=== PATIENT | female | born 1975 | race American Indian/Alaskan Native ===

== ENCOUNTER 2020-01-22 05:28 | Observation (INO) | payer OTHER ==
[2020-01-22] MEDS ORDERED: ASPIRIN 325 MG TAB PO ONE (06:02)
[2020-01-22] MEDS ORDERED: MORPHINE 4 MG/1 ML INJ IV ONE ×2 (06:14→07:25)
[2020-01-22] MEDS ORDERED: ONDANSETRON 4 MG/2 ML INJ IV ONE (06:14)
--- NOTE | 2020-01-22 06:16 | Emergency Department Report ---
ED Chest Pain HPI - General Chief Complaint: Chest Pain Stated Complaint: CHEST PAIN Time Seen by Provider: 01/22/20 06:05 Source: EMS Mode of arrival: Stretcher Limitations: No Limitations - History of Present Illness Initial Comments: 44-year-old -Indian female presents to the emergency department via EMS from home with a complaint of some midsternal chest pain with radiation to the back that started about 20 minutes prior to presentation. She received a full dose aspirin and 3 sublingual nitro in route with EMS without any relief. She h as a past medical history of hypertension, CVA. She is a tobacco smoker but denies any illicit drug use. No primary care physician. No recent travel or sick contacts at home. She has some mild associated shortness of breath, but denies any fever, vomiting, diaphoresis, headache. - Related Data Allergies Allergy/AdvReac Type Severity Reaction Status Date / Time tramadol AdvReac Nausea Verified 01/22/20 05:50 Heart Score - HEART Score History: Slightly suspicious EKG: Normal Age: 45-65 Risk factors: > 3 risk factors or hx of atherosclerotic disease Troponin: < normal limit HEART Score: 3 - Critical Actions Critical Actions: 0-3 pts:0.9-1.7%risk of adverse cardiac event.Candidate for discharge ED Review of Systems ROS: Stated complaint: CHEST PAIN Other details as noted in HPI Comment: All other systems reviewed and negative Constitutional: denies: chills, fever Eyes: denies: eye pain, vision change ENT: denies: ear pain, throat pain Respiratory: shortness of breath. denies: cough Cardiovascular: chest pain. denies: palpitations Gastrointestinal: denies: abdominal pain, vomiting Genitourinary: denies: dysuria, discharge Musculoskeletal: back pain. denies: arthralgia Skin: denies: rash, lesions Neurological: denies: headache, weakness ED Past Medical Hx - Past Medical History Previous Medical History?: Yes Hx Hypertension: Yes Hx CVA: Yes (03/2019) - Surgical History Past Surgical History?: No - Social History Smoking Status: Current Every Day Smoker Substance Use Type: Alcohol ED Physical Exam - General Limitations: No Limitations - Other Other exam information: GENERAL: The patient is well-developed well-nourished. HENT: Normocephalic. Atraumatic. Patient has moist mucous membranes. EYES: Extraocular motions are intact. NECK: Supple. Trachea is midline. CHEST/LUNGS: Clear to auscultation. There is no respiratory distress noted. Chest pain is not reproducible to palpation of the chest wall. HEART/CARDIOVASCULAR: Regular. There is no tachycardia. There is no murmur. ABDOMEN: Abdomen is soft, nontender. Patient has normal bowel sounds. SKIN: Skin is warm and dry. NEURO: The patient is awake, alert, and oriented. The patient is cooperative. Normal speech. MUSCULOSKELETAL: There is no tenderness or deformity. There is no limitation range of motion. ED Course Vital Signs 01/22/20 01/22/20 01/22/20 05:42 06:32 07:36 Temperature 98.0 F Pulse Rate 90 Respiratory 18 19 18 Rate Blood Pressure 185/104 O2 Sat by Pulse 99 Oximetry 01/22/20 01/22/20 07:37 07:51 Temperature Pulse Rate 78 Respiratory 18 Rate Blood Pressure 200/111 O2 Sat by Pulse Oximetry ABRAM score - Abram Score Age > 65: (0) No Aspirin use within the Past 7 Days: (1) Yes 3 or more CAD Risk Factors: (1) Yes 2 or more Angina events in past 24 hrs: (1) Yes Known CAD with more than 50% Stenosis: (0) No Elevated Cardiac Markers: (0) No ST Deviation Greater than 0.5mm: (0) No ABRAM Score: 3 ED Medical Decision Making - Lab Data Result diagrams: 01/22/20 06:30 01/22/20 06:30 - EKG Data -: EKG Interpreted by Nd EKG shows normal: sinus rhythm, axis, intervals, QRS complexes, ST-T waves Rate: normal - EKG Data When compared to previous EKG there are: previous EKG unavailable Interpretation: normal EKG - Radiology Data Radiology results: image reviewed interpreted by me: Chest x-ray does not show any acute process. There are no pleural effusions, obvious pneumonia and there is no pneumothorax. - Medical Decision Making This patient presents with midsternal chest pain that is been going on since about 20 minutes prior to arrival. She has already had 8 mg of morphine, 3 sublingual nitroglycerin, full dose aspirin, Toradol, and still complains of moderate to severe chest pain. EKG did not show any morphology consistent with ST elevation MT or any significant arrhythmia. Chest x-ray did not show any acute process including any pneumonia, widened mediastinum, pleural effusions. First troponin is negative. Patient has a moderate heart and ABRAM score and continues to have chest discomfort despite IV analgesia. She also has some hypertensive issues. For these reasons the patient will be admitted to the hospital for further evaluation and treatment and was accepted for admission by the hospitalist service. Critical Care Time: No Critical care attestation.: If time is entered above; I have spent that time in minutes in the direct care of this critically ill patient, excluding procedure time. ED Disposition Clinical Impression: Acute chest pain, Hypertensive urgency Disposition: DC-[id number] OP ADMIT IP TO THIS HOSP Is pt being admited?: Yes Condition: Fair Instructions: Chest Pain (ED) Time of Disposition: 08:19
--- NOTE | 2020-01-22 06:42 | XRay Report ---
CHEST 1 VIEW INDICATION / CLINICAL INFORMATION: Chest Pain. COMPARISON: None available. FINDINGS: SUPPORT DEVICES: None. HEART / MEDIASTINUM: No significant abnormality. LUNGS / PLEURA: No significant pulmonary or pleural abnormality. No pneumothorax. ADDITIONAL FINDINGS: No significant additional findings. IMPRESSION: 1. No acute findings. Signer Name: Laura Walker MD Signed: 01/22/2020 6:38 AM Workstation Name: [id number]
[2020-01-22 06:53] LABS: Basophils # (Auto) 0.1 K/mm3 (0.0-0.1); Basophils % (Auto) 0.9 % (0.0-1.8); Eosinophils # (Auto) 0.1 K/mm3 (0.0-0.4); Eosinophils % (Auto) 1.3 % (0.0-4.3); Hematocrit 39.3 % (30.3-42.9); Hemoglobin 13.3 gm/dl (10.1-14.3); Lymphocytes # (Auto) 1.9 K/mm3 (1.2-5.4); Lymphocytes % (Auto) 23.3 % (13.4-35.0); Mean Corpuscular HGB Conc 34 % (30-34); Mean Corpuscular Volume 89 fl (79-97); Monocytes # (Auto) 0.6 K/mm3 (0.0-0.8); Monocytes % (Auto) 7.5 % (0.0-7.3); Platelet Count 166 K/mm3 (140-440); Red Blood Count 4.43 M/mm3 (3.65-5.03); Red Cell Distribution Width 15.6 % (13.2-15.2)
[2020-01-22 07:02] LABS: INR 0.9 (0.87-1.13)
[2020-01-22 07:12] LABS: BUN/Creatinine Ratio 17; Blood Urea Nitrogen 12 mg/dL (7-17); Calcium 10.2 mg/dL (8.4-10.2); Hemolysis Index 4
[2020-01-22] MEDS ORDERED: KETOROLAC 30 MG/1 ML INJ IV ONE (07:25)
[2020-01-22] MEDS ORDERED: METOPROLOL TARTRATE 5 MG/5 ML INJ IV ONE (07:37)
[2020-01-22] MEDS ORDERED: hydrALAZINE 20 MG/1 ML INJ IV ONE (09:09)
[2020-01-22] MEDS ORDERED: hydrALAZINE 20 MG/1 ML INJ ONE (09:12)
--- NOTE | 2020-01-22 10:34 | History and Physical Report ---
History of Present Illness Date of examination: 01/22/20 Date of admission: 01/22/20 07:36 Chief complaint: chest pain History of present illness: 44-year-old -[place] female with history of CVA 2019 without any residual weakness, hypertension, not on any medications, does not have any PCP presents to the emergency department via EMS from home with a complaint of some midsternal chest pain with radiation to the back that started from last night yesterday. She received a full dose aspirin and 3 sublingual nitro in route with EMS without any relief. She is a tobacco smoker but denies any illicit drug use. No recent travel or sick contacts at home. She has some mild associated shortness of breath, but denies any fever, vomiting, diaphoresis, headache. In the ER her cardiac enzymes are normal, chest x-ray without any infiltrates or pulmonary edema. Because of her risk factor which includes tobacco abuse, alcohol abuse, history of CVA and hypertension with morbid obesity she is being admitted for possible ACS work-up. Review of System: Constitutional: no fever, no chills, no weight loss Ears, eyes, nose, mouth and throat: no nasal congestion, no nasal discharge, no sinus pressure, no vision change, no red eye. Neck: No neck pain or rigidity. Cardiovascular: + chest pain, no orthopnea, no palpitations, no leg swelling Respiratory: + shortness of breath, no cough, no congestion, no wheezing Gastrointestinal: no abdominal pain, no nausea, no vomiting Genitourinary : no dysuria, no hematuria Musculoskeletal: no joint swelling or muscle ache Integumentary: no rash, no pruritis Neurological: no parathesias, no numbness, no tingling Endocrine: no cold or heat intolerance, no polyuria or polydipsia Hematologic/Lymphatic: no easy bruising, no easy bleeding, no gland swelling Allergic/Immunologic: no urticaria, no angioedema. Past History Past Medical History: hypertension, stroke Past Surgical History: No surgical history Social history: smoking, alcohol abuse Family history: hypertension Medications and Allergies Allergies Allergy/AdvReac Type Severity Reaction Status Date / Time tramadol AdvReac Nausea Verified 01/22/20 05:50 Home Medications Medication Instructions Recorded Confirmed Last Taken Type amLODIPine [Norvasc] 10 mg PO DAILY 01/22/20 01/22/20 Unknown History lisinopriL [Zestril TAB] 40 mg PO QDAY 01/22/20 01/22/20 Unknown History Active Meds: Active Medications Amlodipine Besylate (Amlodipine) 10 mg PO DAILY [facility] Aspirin (Baby Aspirin) 81 mg PO QDAY [facility] Atorvastatin Calcium (Lipitor) 40 mg PO QHS [facility] Lisinopril (Zestril) 40 mg PO QDAY [facility] Morphine Sulfate (Morphine) 2 mg IV Q5MIN PRN PRN Reason: Chest Pain unrelieved by NTG Nitroglycerin (Nitrostat) 0.4 mg SL Q5M PRN PRN Reason: Chest Pain Pantoprazole Sodium (Protonix) 40 mg PO QDAY [facility] Sodium Chloride (Sodium Chloride Flush Syringe 10 Ml) 10 ml IV PRN PRN PRN Reason: LINE FLUSH Exam - Physical Exam Narrative exam: GENERAL: well-developed and morbidly obese lying on bed appeared to be in no discomfort. HEENT: Normocephalic. Atraumatic. No conjunctival congestion or icterus. Patient has moist mucous membranes. NECK: Supple. Trachea midline. CHEST/LUNGS: Clear to auscultated bilaterally, breathing nonlabored. No wheezes crackles or rhonchi. HEART/CARDIOVASCULAR: Regular in rate and rhythm. S1 and S2 positive. ABDOMEN: Abdomen is soft, nontender. Patient has normal bowel sounds. SKIN: There is no rash. Warm and dry. NEURO: No focal motor deficit. Follows command. MUSCULOSKELETAL: No joint effusion or tenderness. EXTRIMITY: No edema, no cyanosis or clubbing. PSYCH: Cooperative. - Constitutional Vitals: Temp Pulse Resp BP Pulse Ox 98.0 F 84 18 178/97 99 01/22/20 05:42 01/22/20 09:39 01/22/20 09:39 01/22/20 09:39 01/22/20 09:39 Results - Labs CBC & Chem 7: 01/22/20 06:30 01/22/20 06:30 Labs: Abnormal lab results 01/22/20 01/22/20 Range/Units 06:30 06:30 RDW 15.6 H (13.2-15.2) % [facility] % (Auto) 7.5 H (0.0-7.3) % Chloride 107.6 H (98-107) mmol/L Carbon Dioxide 21 L (22-30) mmol/L Glucose 120 H (65-100) mg/dL Assessment and Plan Acute chest pain -- will admit to telemetry bed - monitor with serial CE and EKG - will place on Aspirin, statin - as needed SL NTG and iv morphin for pain - Monitor BP, add betablocker and ACEI - order 2D echo and cardiac diet now, consult cardiology Hypertensive urgency -We will resume her home meds of Norvasc and lisinopril -We will also add beta-saritha, IV hydralazine as needed History of CVA -Continue aspirin and statin Tobacco abuse/alcohol abuse -Everyday smoker but she she states that she does not drink on daily basis -Counseled for cessation -We will also obtain UDS - provide DVT Px with lovenox
[2020-01-22] MEDS ORDERED: carvediloL 3.125 MG TAB PO SCH ×2 (11:00→13:32)
[2020-01-22] MEDS: amLODIPine 10 MG TAB PO SCH (12:24)
[2020-01-22] MEDS: PANTOPRAZOLE 40 MG TAB PO SCH (12:24)
[2020-01-22] MEDS: LISINOPRIL 40 MG TAB PO SCH (12:25)
[2020-01-22] MEDS: MORPHINE 2 MG/1 ML INJ IV PRN ×4 (12:33→22:52)
--- NOTE | 2020-01-22 13:26 | Consultation ---
History of Present Illness Consult date: 01/22/20 Requesting physician: FLOR PAGE Consult reason: chest pain History of present illness: The pt is a 44-year-old female with a past medical history of HTN, CVA in 2019 (treated at [facility]), tobacco use. She is previously unknown to our practice. She presented to ED via EMS from home with c/o chest pain since around 4AM this morning. 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 She describes the chest pain as a right-sided and midsternal pressure with radiation to the back. The pain is constant and is still present on evaluation. She has some mild associated shortness of breath, but denies any palpitations, n/v, diaphoresis, dizziness or syncope. BP noted to be 200/111 in ED. Past History Past Medical History: hypertension, stroke Past Surgical History: No surgical history Social history: smoking, alcohol abuse (social) Family history: hypertension Medications and Allergies Allergies Allergy/AdvReac Type Severity Reaction Status Date / Time tramadol AdvReac Nausea Verified 01/22/20 05:50 Home Medications Medication Instructions Recorded Confirmed Last Taken Type amLODIPine [Norvasc] 10 mg PO DAILY 01/22/20 01/22/20 Unknown History lisinopriL [Zestril TAB] 40 mg PO QDAY 01/22/20 01/22/20 Unknown History Active Meds: Active Medications Amlodipine Besylate (Amlodipine) 10 mg PO DAILY [facility] [place] Last Admin: 01/22/20 12:24 Dose: 10 mg Documented by: Aspirin (Baby Aspirin) 81 mg PO QDAY [facility] [place] Atorvastatin Calcium (Lipitor) 40 mg PO QHS [facility] Carvedilol (Coreg) 3.125 mg PO BID [facility] [place] Last Admin: 01/22/20 12:24 Dose: 3.125 mg Documented by: Enoxaparin Sodium (Enoxaparin) 40 mg SUB-Q QDAY@2200 [facility] Lisinopril (Zestril) 40 mg PO QDAY [facility] [place] Last Admin: 01/22/20 12:25 Dose: 40 mg Documented by: Morphine Sulfate (Morphine) 2 mg IV Q5MIN PRN PRN Reason: Chest Pain unrelieved by NTG Last Admin: 01/22/20 12:33 Dose: 2 mg Documented by: Nitroglycerin (Nitrostat) 0.4 mg SL Q5M PRN PRN Reason: Chest Pain Pantoprazole Sodium (Protonix) 40 mg PO QDAY [facility] Last Admin: 01/22/20 12:24 Dose: 40 mg Documented by: Sodium Chloride (Sodium Chloride Flush Syringe 10 Ml) 10 ml IV PRN PRN PRN Reason: LINE FLUSH Review of Systems Constitutional: no weight loss, no weight gain, no fever, no chills, no sweats Ears, nose, mouth and throat: no ear pain, no nose pain, no sinus pressure, no sinus pain Cardiovascular: chest pain, shortness of breath, high blood pressure, no orthopnea, no palpitations, no rapid/irregular heart beat, no edema, no syncope, no lightheadedness, no leg edema Respiratory: shortness of breath, no cough, no congestion, no wheezing, no pain on inspiration Gastrointestinal: no abdominal pain, no nausea, no vomiting, no diarrhea, no constipation, no change in bowel habits Genitourinary Female: no pelvic pain, no flank pain, no dysuria, no urinary frequency, no urgency Musculoskeletal: no neck stiffness, no neck pain, no shooting arm pain, no arm numbness/tingling, no low back pain, no shooting leg pain Integumentary: no rash, no pruritis, no redness, no sores, no wounds Neurological: no head injury, no paralysis, no weakness, no parathesias, no numbness, no tingling, no seizures, no syncope Psychiatric: no anxiety Endocrine: no cold intolerance, no heat intolerance Hematologic/Lymphatic: no easy bruising Allergic/Immunologic: no urticaria Physical Examination Vital Signs Temp Pulse Resp BP Pulse Ox 97.9 F 90 18 185/104 99 01/22/20 05:42 01/22/20 05:42 01/22/20 05:42 01/22/20 05:42 01/22/20 05:42 General appearance: no acute distress HEENT: Positive: PERRL, Normocephaly, Mucus Membranes Moist Neck: Positive: neck supple, trachea midline Cardiac: Positive: Reg Rate and Rhythm, S1/S2 Lungs: Positive: Decreased Breath Sounds Neuro: Positive: Grossly Intact Abdomen: Negative: Tender Skin: Negative: Rash Musculoskeletal: No Pain Extremities: Absent: edema Results 01/22/20 06:30 01/22/20 06:30 Coagulation 01/22/20 Range/Units 06:30 PT 12.2 (12.2-14.9) Sec. INR 0.90 (0.87-1.13) CBC 01/22/20 Range/Units 06:30 WBC 8.2 (4.5-11.0) K/mm3 RBC 4.43 (3.65-5.03) M/mm3 Hgb 13.3 (10.1-14.3) gm/dl Hct 39.3 (30.3-42.9) % Plt Count 166 (140-440) K/mm3 Lymph # 1.9 (1.2-5.4) K/mm3 [place] # 0.6 (0.0-0.8) K/mm3 Eos # 0.1 (0.0-0.4) K/mm3 Baso # 0.1 (0.0-0.1) K/mm3 Comprehensive Metabolic Panel 01/22/20 Range/Units 06:30 Sodium 140 (137-145) mmol/L Potassium 4.2 (3.6-5.0) mmol/L Chloride 107.6 H (98-107) mmol/L Carbon Dioxide 21 L (22-30) mmol/L BUN 12 (7-17) mg/dL Creatinine 0.7 (0.7-1.2) mg/dL Glucose 120 H (65-100) mg/dL Calcium 10.2 (8.4-10.2) mg/dL - Imaging and Cardiology EKG: report reviewed, image reviewed EKG interpretations - Telemetry EKG Rhythm: Sinus Rhythm - EKG Sinus rhythms and dysrhythmias: sinus rhythm Assessment and Plan [facility]acle negative for AMI x 2 sets. ECG with NSR, NAF. Optimize anti-hypertensive regimen. Obtain echo. Obtain lipid panel in AM. Plan for treadmill MPI stress test in AM. NPO after MN. The patient has been seen in conjunction with Dr. Lazcano who agrees with the assessment and plan of care. - Patient Problems (1) Acute chest pain Current Visit: Yes Status: Acute (2) Hypertensive urgency Current Visit: Yes Status: Acute (3) History of CVA (cerebrovascular accident) Current Visit: Yes Status: Chronic (4) Tobacco use Current Visit: Yes Status: Chronic (5) Obesity Current Visit: Yes Status: Chronic
[2020-01-22] MEDS: carvediloL 6.25 MG TAB PO SCH ×2 (14:09→21:25)
[2020-01-22] MEDS: NITROGLYCERIN 0.4 MG TAB SUBL SL PRN (17:32)
[2020-01-22] MEDS ORDERED: ONDANSETRON 4 MG/2 ML INJ IV PRN (17:53)
[2020-01-22] MEDS: hydrALAZINE 20 MG/1 ML INJ IV PRN (18:23)
[2020-01-22] MEDS: ENOXAPARIN 40 MG/0.4 ML INJ SUB-Q SCH (21:24)
[2020-01-22 23:15] LABS: Amphetamine Screen,Urine PRESUMPTIVE NEGATIVE; Benzodiazepines Screen,Urine PRESUMPTIVE NEGATIVE; Cannabinoid Screen,Urine PRESUMPTIVE NEGATIVE; Cocaine Screen,Urine PRESUMPTIVE NEGATIVE; Methadone Screen,Urine PRESUMPTIVE NEGATIVE; Opiate Screen,Urine PRESUMPTIVE NEGATIVE
[2020-01-23] MEDS: hydrALAZINE 20 MG/1 ML INJ IV PRN ×3 (00:01→12:39)
[2020-01-23] MEDS: NITROGLYCERIN 0.4 MG TAB SUBL SL PRN (00:04)
[2020-01-23 04:56] LABS: Chol/HDL Ratio 2.67 %
[2020-01-23] MEDS ORDERED: REGADENOSON 0.4 MG/5 ML INJ IV ONE (07:07)
[2020-01-23] MEDS ORDERED: hydrALAZINE 20 MG/1 ML INJ ONE (09:23)
[2020-01-23] MEDS ORDERED: carvediloL 6.25 MG TAB PO SCH (10:39)
--- NOTE | 2020-01-23 10:39 | Progress Note ---
Assessment and Plan tte reviewed - EF 55-60%, impaired relaxation, mild AR. Optimize BPs - increase coreg. S/p lexiscan MPI stress test today which was abnormal. Coronary angiography recommended for definitive diagnosis. Indications, potential risks and benefits of LHC reviewed with pt and she is agreeable to proceed with LHC in AM. NPO after MN. The patient has been seen in conjunction with Dr. Lazcano who agrees with the assessment and plan of care. - Patient Problems (1) Acute chest pain Current Visit: Yes Status: Acute (2) Hypertensive urgency Current Visit: Yes Status: Acute (3) History of CVA (cerebrovascular accident) Current Visit: Yes Status: Chronic (4) Tobacco use Current Visit: Yes Status: Chronic (5) Obesity Current Visit: Yes Status: Chronic (6) Dyslipidemia Current Visit: Yes Status: Chronic Subjective Date of service: 01/23/20 Principal diagnosis: cp; htn Interval history: pt for stress test today. c/o n/v. in SR on tele. Objective Last Vital Signs Temp 98.5 F 01/23/20 07:30 Pulse 104 H 01/23/20 09:29 Resp 20 01/23/20 07:30 BP 197/109 01/23/20 09:29 Pulse Ox 94 01/23/20 07:30 - Physical Examination General: No Apparent Distress HEENT: Positive: PERRL, Normocephaly, Mucus Membranes Moist Neck: Positive: neck supple, trachea midline Cardiac: Positive: Reg Rate and Rhythm, S1/S2 Lungs: Positive: Decreased Breath Sounds Neuro: Positive: Grossly Intact Abdomen: Negative: Tender Skin: Negative: Rash Musculoskeletal: No Pain Extremities: Absent: edema - Labs and Meds Lipids 01/23/20 Range/Units 04:15 Triglycerides 75 (2-149) mg/dL Cholesterol 198 (50-199) mg/dL HDL Cholesterol 74 H (40-59) mg/dL Cholesterol/HDL Ratio 2.67 % - Imaging and Cardiology EKG: report reviewed, image reviewed - EKG Sinus rhythms and dysrhythmias: sinus rhythm
[2020-01-23] MEDS: amLODIPine 10 MG TAB PO SCH (11:23)
[2020-01-23] MEDS: carvediloL 12.5 MG TAB PO SCH ×2 (11:23→21:56)
[2020-01-23] MEDS: LISINOPRIL 40 MG TAB PO SCH (11:23)
[2020-01-23] MEDS: PANTOPRAZOLE 40 MG TAB PO SCH (11:24)
[2020-01-23] MEDS: ASPIRIN 81 MG TAB CHEW PO SCH (11:25)
[2020-01-23] MEDS ORDERED: SODIUM CHLORIDE 0.9% 500 ML 500 ML IV SCH (12:00)
--- NOTE | 2020-01-23 12:03 | Progress Note ---
Assessment and Plan Acute chest pain -cont on Aspirin, statin, as needed SL NTG and iv morphin for pain - Monitor BP, added betablocker and ACEI - cardiac diet now, consulted cardiology -Abnormal stress test this morning, will follow 2D echo -Plan for cardiac cath tomorrow Hypertensive urgency -Continue her home meds of Norvasc and lisinopril -added beta-saritha, IV hydralazine as needed History of CVA -Continue aspirin and statin Tobacco abuse/alcohol abuse -Everyday smoker but she she states that she does not drink on daily basis -Counseled for cessation -We will also obtain UDS - provide DVT Px with lovenox 01/22 stress test abnormal, plan for cardiac cath tomorrow Subjective Date of service: 01/23/20 Principal diagnosis: cp; htn Interval history: Patient seen and examined. Medical records and medication list reviewed. No acute event overnight noted by the RN. Patient continues to complains of intermittent chest pain. Status post MPI stress test today Discussed plan of care at bedside with patient. Objective - Exam Narrative Exam: GENERAL: well-developed and morbidly obese lying on bed appeared to be in no discomfort. HEENT: Normocephalic. Atraumatic. No conjunctival congestion or icterus. Patient has moist mucous membranes. NECK: Supple. Trachea midline. CHEST/LUNGS: Clear to auscultated bilaterally, breathing nonlabored. No wheezes crackles or rhonchi. HEART/CARDIOVASCULAR: Regular in rate and rhythm. S1 and S2 positive. ABDOMEN: Abdomen is soft, nontender. Patient has normal bowel sounds. SKIN: There is no rash. Warm and dry. NEURO: No focal motor deficit. Follows command. MUSCULOSKELETAL: No joint effusion or tenderness. EXTRIMITY: No edema, no cyanosis or clubbing. PSYCH: Cooperative. - Constitutional Vitals: Vital Signs - 12hr 01/23/20 01/23/20 01/23/20 00:04 03:54 07:30 Temperature 98.7 F 98.5 F Pulse Rate 88 86 88 Respiratory 18 20 Rate Blood Pressure 193/83 176/76 181/86 O2 Sat by Pulse 99 94 Oximetry 01/23/20 01/23/20 01/23/20 09:29 09:31 09:35 Temperature Pulse Rate 104 H Respiratory Rate Blood Pressure 197/109 202/108 190/102 O2 Sat by Pulse Oximetry 01/23/20 01/23/20 01/23/20 09:44 09:46 09:50 Temperature Pulse Rate Respiratory Rate Blood Pressure 209/103 193/93 179/90 O2 Sat by Pulse Oximetry 01/23/20 01/23/20 09:52 11:23 Temperature Pulse Rate 89 Respiratory Rate Blood Pressure 171/89 178/97 O2 Sat by Pulse Oximetry - Labs CBC & Chem 7: 01/22/20 06:30 01/22/20 06:30 Labs: Abnormal lab results 01/23/20 Range/Units 04:15 HDL Cholesterol 74 H (40-59) mg/dL
[2020-01-23] MEDS: ENOXAPARIN 40 MG/0.4 ML INJ SUB-Q SCH (21:57)
[2020-01-24 04:57] LABS: Basophils % (Auto) 0.9 % (0.0-1.8); Eosinophils % (Auto) 0.2 % (0.0-4.3); Lymphocytes % (Auto) 13.9 % (13.4-35.0); Monocytes % (Auto) 12.4 % (0.0-7.3)
[2020-01-24 05:04] LABS: INR 1.02 (0.87-1.13)
[2020-01-24 05:07] LABS: Hematocrit 46.8 % (30.3-42.9); Hemoglobin 15.6 gm/dl (10.1-14.3); Lymphocytes # (Auto) 1.8 K/mm3 (1.2-5.4); Mean Corpuscular HGB Conc 33 % (30-34); Mean Corpuscular Volume 89 fl (79-97); Monocytes # (Auto) 1.5 K/mm3 (0.0-0.8); Platelet Count 181 K/mm3 (140-440); Red Blood Count 5.25 M/mm3 (3.65-5.03); Red Cell Distribution Width 15.5 % (13.2-15.2)
[2020-01-24 05:40] LABS: BUN/Creatinine Ratio 22; Blood Urea Nitrogen 13 mg/dL (7-17); Calcium 10.6 mg/dL (8.4-10.2); Hemolysis Index 9
[2020-01-24] MEDS ORDERED: ASPIRIN 81 MG TAB CHEW ONE (07:41)
[2020-01-24] MEDS: ASPIRIN 81 MG TAB CHEW PO SCH ×2 (07:45→10:33)
[2020-01-24] MEDS ORDERED: HEPARIN/NS 5000 UNIT/500ML 1,000 ML IR ONE (07:55)
[2020-01-24] MEDS ORDERED: NITROGLYCERIN SYRINGE 0 ML ONE (07:56)
[2020-01-24] MEDS ORDERED: VERAPAMIL 5 MG/2 ML INJ ONE (07:56)
[2020-01-24] MEDS ORDERED: SODIUM CHLORIDE 0.9% 500 ML 500 ML IV SCH (08:00)
[2020-01-24] MEDS: fentaNYL 100 MCG/2 ML INJ ONE ×2 (08:37→08:54)
[2020-01-24] MEDS: LIDOCAINE (2%) 20 MG/1 ML VIAL 20 ML MDV INFILTRATI ONE ×2 (08:37→08:42)
[2020-01-24] MEDS: MIDAZOLAM 2 MG/2 ML INJ ONE ×2 (08:37→08:54)
[2020-01-24] MEDS: HEPARIN 10,000 UNITS/10 ML VIAL ONE ×2 (08:38→08:43)
[2020-01-24] MEDS ORDERED: hydrALAZINE 20 MG/1 ML INJ ONE (09:02)
--- NOTE | 2020-01-24 09:35 | Cardiac Catherization Report ---
CARDIAC CATHETERIZATION REPORT INDICATION: The patient is a 44-year-old female with history of hypertension and obesity, presented with anterior chest pain of few days' duration along with shortness of breath. A pharmacological stress testing was performed, which showed evidence of ischemia in the mid distal anterior wall. Because of her symptoms and multiple risk factors, she is scheduled for cardiac catheterization for definitive diagnosis and treatment. The patient is aware of the procedure, potential complications and alternatives of therapy available. DESCRIPTION OF PROCEDURE: The patient was brought to the catheterization laboratory in a fasting condition. She was evaluated for moderate sedation and she was felt to be appropriate for moderate sedation. The patient received IV Versed and fentanyl as sedative agents and analgesics. Subsequently, the patient was prepared in the standard fashion, sterile drapes were applied. Local anesthesia was given in the right wrist area and right radial artery puncture was made using 21-gauge arterial puncture needle. A [place] slender sheath was introduced. The patient received 5 mg of intra-arterial verapamil and 3000 units of intravenous heparin. A [place] multipurpose catheter was used to obtain the angiograms of the left coronary artery in multiple views and right coronary artery in multiple views. However, there is significant spasm of the right radial artery, making it difficult to manipulate the multipurpose catheter. At the end of the left ventricle [place] JR4 catheter was used. The patient does have still significant spasm, was given more analgesia. Left ventriculogram was performed using hand injections and [place] JR4 catheter in [place] projection. At the end of the procedure, catheter and sheath were removed. No hematoma noted. Radial band was applied for hemostasis. The patient was monitored throughout the procedure with pulse oximetry, EKG monitoring and hemodynamic monitoring. The patient tolerated the sedation well. The patient is breathing normally and communicating normally with no focal deficits at the end of the procedure. It is to be noted that the patient does have significantly elevated blood pressure throughout the procedure requiring IV hydralazine. It is to be noted the patient did have significant radial artery spasm making manipulation of the catheter difficult. HEMODYNAMICS: 1. Aortic pressure 158/89, left ventricular pressure 175/15. No gradient across the aortic valve. Estimated ejection fraction 65%. 2. Left ventriculogram done in [place] projection shows normal sized left ventricle with normal contractility. Only limited amount of dye was injected. Mitral regurgitation could not be evaluated. 3. Right coronary artery dominant vessel arises normally from right coronary cusp. There is a long smooth lesion approaching 40% or so in the proximal one-third. Mid and distal RCA dominant vessel without significant disease. 4. Left coronary artery arises normally from left coronary cusp. Left main without significant disease. LAD curves around the apex and gives rise to a fairly large proximal diagonal branch. LAD itself in the intraventricular groove without significant disease. Proximal diagonal branch in the very distal part shows 50% smooth lesion. Circumflex artery gives rise to a very large obtuse marginal branch approaching the AV groove. Circumflex has a long 50-60% smooth lesion. This segment of the involved area is tortuous and also close to the origin of the mid marginal branch itself without significant disease, except for this lesion in the AV groove, which is 50-60% distal circumflex artery without significant disease. 5. Collaterals none. FINAL IMPRESSION: 1. Normal sized left ventricle with normal contractility. 2. Significantly elevated blood pressure both diastolic and systolic, requiring IV antihypertensives during the procedure. 3. Significant spasm of the right radial artery. 4. Moderate disease noted in the mid to distal circumflex artery in the AV groove, 50-60% long lesion involving a tortuous area. Proximal diagonal branch has 50% smooth lesion. Also proximal RCA has a 40-50% long smooth proximal lesion. At this time, these lesions appeared to be nonobstructive. Considering the area of ischemia is in the anterior wall and LAD is without significant disease, the patient will be continued on aggressive medical therapy and risk factor modification, namely better control of blood pressure and lipids. The patient is symptomatic in spite of medical therapy, intervention of the circumflex artery can be considered; however, this lesion is in a tortuosity along with at the origin of a large marginal branch. Considering the above anatomical details, it was felt medical therapy is appropriate. The patient tolerated the procedure well. No untoward complications were noted. The patient tolerated IV sedation well. The patient's sedation started at 8:37 a.m. and ended at 8:57 a.m. Findings were explained to the patient. JOB# [id number] MALIK/KAYLENE
[2020-01-24] MEDS: PANTOPRAZOLE 40 MG TAB PO SCH (10:32)
[2020-01-24] MEDS: amLODIPine 10 MG TAB PO SCH (10:32)
[2020-01-24] MEDS: LISINOPRIL 40 MG TAB PO SCH (10:32)
[2020-01-24] MEDS: carvediloL 12.5 MG TAB PO SCH (10:33)
[2020-01-24] MEDS ORDERED: carvediloL 12.5 MG TAB PO SCH ×2 (10:44→11:00)
--- NOTE | 2020-01-24 10:47 | Progress Note ---
Assessment and Plan tte reviewed - EF 55-60%, impaired relaxation, mild AR. S/p LHC today which showed 50-60% smooth lesion in left circ, cont medical therapy. Currently stable cardiac status. Chest pain currently resolved. Optimize BPs and HR - increase coreg to 25mg BID. Pt may discharge from cardiology standpoint following completion of post-cath order set. Recommend pt follow up in our office with Dr. Lazcano within 1-2 weeks ([phone]). The patient has been seen in conjunction with Dr. Lazcano who agrees with the assessment and plan of care. - Patient Problems (1) Acute chest pain Current Visit: Yes Status: Resolved (2) Hypertensive urgency Current Visit: Yes Status: Acute (3) History of CVA (cerebrovascular accident) Current Visit: Yes Status: Chronic (4) Tobacco use Current Visit: Yes Status: Chronic (5) Obesity Current Visit: Yes Status: Chronic (6) Dyslipidemia Current Visit: Yes Status: Chronic (7) CAD (coronary artery disease) Current Visit: Yes Status: Chronic Subjective Date of service: 01/24/20 Principal diagnosis: cp; htn Interval history: pt for [facility] today. no current complaints. in [place] on tele with a few bouts of ST noted overnight. Objective Last Vital Signs Temp 98.6 F 01/24/20 05:04 Pulse 120 H 01/24/20 10:33 Resp 18 01/24/20 05:04 BP 147/97 01/24/20 10:33 Pulse Ox 99 01/24/20 05:04 - Physical Examination General: No Apparent Distress HEENT: Positive: PERRL, Normocephaly, Mucus Membranes Moist Neck: Positive: neck supple, trachea midline Cardiac: Positive: Reg Rate and Rhythm, S1/S2 Lungs: Positive: Decreased Breath Sounds Neuro: Positive: Grossly Intact Abdomen: Negative: Tender Skin: Negative: Rash Musculoskeletal: No Pain Extremities: Absent: edema - Labs and Meds Coagulation 01/24/20 Range/Units 04:18 PT 13.5 (12.2-14.9) Sec. INR 1.02 (0.87-1.13) CBC 01/24/20 Range/Units 04:18 WBC 12.4 H (4.5-11.0) K/mm3 RBC 5.25 H (3.65-5.03) M/mm3 Hgb 15.6 H (10.1-14.3) gm/dl Hct 46.8 H D (30.3-42.9) % Plt Count 181 (140-440) K/mm3 Lymph # 1.8 (1.2-5.4) K/mm3 [place] # 1.5 H (0.0-0.8) K/mm3 Eos # 0.0 (0.0-0.4) K/mm3 Baso # 0.0 (0.0-0.1) K/mm3 Comprehensive Metabolic Panel 01/24/20 Range/Units 04:18 Sodium 137 (137-145) mmol/L Potassium 3.5 L (3.6-5.0) mmol/L Chloride 100.3 (98-107) mmol/L Carbon Dioxide 21 L (22-30) mmol/L BUN 13 (7-17) mg/dL Creatinine 0.6 L (0.7-1.2) mg/dL Glucose 102 H (65-100) mg/dL Calcium 10.6 H (8.4-10.2) mg/dL - Imaging and Cardiology EKG: report reviewed, image reviewed Echo: report reviewed - Telemetry EKG Rhythm: Sinus Rhythm - EKG Sinus rhythms and dysrhythmias: sinus rhythm
--- NOTE | 2020-01-24 12:44 | Discharge Summary ---
Providers - Providers Date of Admission: 01/22/20 07:36 Date of discharge: 01/24/20 Attending physician: FLOR PAGE 01/22/20 Consult to Cardiac Rehabilitation [CONS] Routine Reason For Exam: Phase I 01/22/20 10:28 Consult to Cardiology [CONS] Routine Consulting Provider: GAUTAM GAMBLE Reason For Exam: chest pain 01/24/20 10:43 Consult to Cardiac Rehabilitation [CONS] Routine Reason For Exam: Cardiac Rehab Evaluation [facility] Condition: Fair Hospital course: 44-year-old -[place] female with history of CVA 2019 without any residual weakness, hypertension, not on any medications, does not have any PCP presents to the emergency department via EMS from home with a complaint of some midsternal chest pain with radiation to the back. In the ER her cardiac enzymes are normal, chest x-ray without any infiltrates or pulmonary edema. Because of her risk factor which includes tobacco abuse, alcohol abuse, history of CVA and hypertension with morbid obesity she was being admitted for possible ACS work- up. Cardiology was consulted, MPI stress test was obtained which showed results was abnormal. Patient was then further evaluated by left heart catheterization which revealed mild coronary artery disease and cardiology recommended to treat medically. Patient was then discharged home in stable condition with outpatient follow-up. Patient was counseled to be compliant with her blood pressure medications and abstinence from tobacco and alcohol abuse. Discharge diagnosis: Acute chest pain likely due to coronary artery disease, -Stress test was abnormal, - tte reviewed - EF 55-60%, impaired relaxation, mild AR. - S/p LHC today which showed 50-60% smooth lesion in left circ, - plan to treat medically Hypertensive urgency, -Stable with current medications including Norvasc lisinopril and beta-saritha History of CVA, continue aspirin and statin Morbid obesity, counseled for weight reduction diet and exercise as tolerated as outpatient Tobacco abuse/alcohol abuse -Counseled for cessation Noncompliance, counseled for medication compliance outpatient follow-up DVT prophylaxis, Lovenox Physical exam: GENERAL: well-developed and morbidly obese lying on bed appeared to be in no di [place]. HEENT: Normocephalic. Atraumatic. No conjunctival congestion or icterus. Patient has moist mucous membranes. NECK: Supple. Trachea midline. CHEST/LUNGS: Clear to auscultated bilaterally, breathing nonlabored. No wheezes crackles or rhonchi. HEART/CARDIOVASCULAR: Regular in rate and rhythm. S1 and S2 positive. ABDOMEN: Abdomen is soft, nontender. Patient has normal bowel sounds. SKIN: There is no rash. Warm and dry. NEURO: No focal motor deficit. Follows command. MUSCULOSKELETAL: No joint effusion or tenderness. EXTRIMITY: No edema, no cyanosis or clubbing. PSYCH: Cooperative. Disposition: DC-01 TO HOME OR SELFCARE Time spent for discharge: 34 minutes Core Measure Documentation - Palliative Care Palliative Care/ Comfort Measures: Not Applicable - Core Measures Any of the following diagnoses?: none Exam - Constitutional Vitals: Temp Pulse Resp BP Pulse Ox 98.1 F 125 H 22 136/72 95 01/24/20 10:58 01/24/20 10:58 01/24/20 10:58 01/24/20 10:58 01/24/20 10:58 Plan Activity: advance as tolerated Weight Bearing Status: Weight Bear as Tolerated Diet: low fat, low salt Special Instructions: record daily BP diary, smoking cessation, other (Alcohol cessation) Follow up with: [facility] MD CORTEZ [Primary Care Provider] - 7 Days VLADIMIR CHIRINOS MD [Staff Physician] - 7 Days Prescriptions: AtorvaSTATin [Lipitor] 40 mg PO QHS #30 tablet amLODIPine 10 mg PO DAILY #30 tablet Aspirin [Aspirin BABY CHEW TAB] 81 mg PO QDAY #30 tab.chew carvediloL [Coreg] 25 mg PO BID #60 tablet lisinopriL [Zestril TAB] 40 mg PO QDAY #30 tablet
[2020-01-24] MEDS ORDERED: POTASSIUM CHLORIDE ER 20 MEQ TAB PO ONE (17:49)
[2020-01-24 19:35] VITALS: BP 120/68
[2020-01-24] MEDS ORDERED: carvediloL 25 MG TAB PO SCH (22:00)
== END 2020-01-24 16:55 | disposition home or self-care (01) ==
LOC: ED 05:28 → 4A 07:36
PROVIDERS: ADMIT Internal Medicine; ATTEND Internal Medicine
DX: R07.89 Other chest pain (principal); I16.0 Hypertensive urgency; I10 Essential (primary) hypertension; E66.01 Morbid (severe) obesity due to excess calories; Z91.14 Patient's other noncompliance with medication regimen; I25.10 Atherosclerotic heart disease of native coronary artery without angina pectoris; E78.5 Hyperlipidemia, unspecified; F17.200 Nicotine dependence, unspecified, uncomplicated; Z86.73 Personal history of transient ischemic attack (TIA), and cerebral infarction without residual deficits; Z71.6 Tobacco abuse counseling; Z79.899 Other long term (current) drug therapy; Z88.6 Allergy status to analgesic agent; Z68.38 Body mass index [BMI] 38.0-38.9, adult
CPT/HCPCS: 36415; 71045; 78452; 80048; 80061; 80307; 82962; 84484; 85025; 85610; 93005; 93017; 93306; 93458; 96372; 96374; 96375; 96376; 99285; 99406; A9270; A9502; C1769; C1894; G0378; J0360; J1644; J1650; J1885; J2250; J2270; J2405; J2785; J3010; J7040; Q9967